=== PATIENT | male | born 1970 | race Caucasian/White ===

== ENCOUNTER 2019-04-05 18:27 | Emergency (ER) | payer BC ==
[~2019-04-05] VITALS: Ht 177.8 cm; Wt 86.2 kg
[2019-04-05] MEDS ORDERED: IV NORMAL SALINE 1000ML BAG 1,000 ML IV SCH (19:03)
--- NOTE | 2019-04-05 19:10 | PHYS DOC ---
Adult General Chief Complaint Chief Complaint: SHORTNESS OF BREATH HPI HPI Patient is a 49-year-old male who presents with complaint of chest pain or shortness of breath. Patient states the chest pain has been ongoing for the last couple of weeks and states the pain is intermittent. He describes pain as pressure and states that it's across his upper chest. He does indicate that he has had some nausea but no vomiting. He also indicates that he has had diaphoresis especially at night. Patient states that the shortness of breath that started this morning when he first gotten up and has progressively gotten worse throughout the day. He does indicate that he has bilateral lower extremity pain and states that he had recent nerve study on his legs and states that he was told that his nerves are overactive. He denies any fever. He does indicate he has had a cough cough that has been intermittently productive of green sputum. He states that nothing is improving his symptoms. Review of Systems Review of Systems Constitutional: Denies fever or chills [] Respiratory: Positive cough and shortness of breath [] Cardiovascular: No additional information not addressed in HPI [] GI: Denies abdominal pain. Positive nausea without vomiting or diarrhea [] Musculoskeletal: Complains of bilateral lower extremity pain [] Integument: Denies rash or skin lesions [] All other systems were reviewed and found to be within normal limits, except as documented in this note. Current Medications Current Medications Current Medications Medications (Trade) Dose Ordered Sig/[facility] Start Time Stop Time Status Last Admin Dose Admin Aspirin (Children'S Aspirin) 324 mg 1X ONCE 04/05/19 19:15 04/05/19 19:26 DC 04/05/19 19:39 324 MG Morphine Sulfate (Morphine Sulfate) 2 mg PRN Q15MIN PRN 04/05/19 19:15 04/06/19 19:14 04/05/19 19:38 2 MG Ondansetron HCl (Zofran) 4 mg STK-MED ONCE 04/05/19 19:40 04/05/19 19:41 DC Sodium Chloride 1,000 ml @ 100 mls/hr Q10H 04/05/19 19:03 04/06/19 05:02 04/05/19 19:38 100 MLS/HR Allergies Allergies Allergies Coded Allergies Type Severity Reaction Last Updated Verified No Known Drug Allergies 04/05/19 No Physical Exam Physical Exam Constitutional: Well developed, well nourished, no acute distress, non-toxic appearance. [] HENT: Normocephalic, atraumatic, bilateral external ears normal, oropharynx moist, no oral exudates, nose normal. [] Eyes: PERRLA, EOMI, conjunctiva normal, no discharge. [] Neck: Normal range of motion, no tenderness, supple, no stridor. [] Cardiovascular: Regular rate and rhythm[] Lungs & Thorax: There are coarse rhonchi bilaterally to auscultation [] Abdomen: Bowel sounds normal, soft, no tenderness. [] Skin: Warm, dry, no erythema, no rash. [] Extremities: No tenderness, no cyanosis, no clubbing, ROM intact. [] Neurologic: Alert and oriented X 3, no focal deficits noted. [] Current Patient Data Vital Signs Vital Signs Date Time Temp Pulse Resp B/P (MAP) Pulse Ox O2 Delivery O2 Flow Rate FiO2 04/05/19 21:07 73 16 151/85 (107) 98 Room Air 04/05/19 18:50 97.6 97.6 Lab Values Laboratory Tests Test 04/05/19 19:20 04/05/19 21:12 White Blood Count 12.5 x10^3/uL (4.0-11.0) H Red Blood Count 5.35 x10^6/uL (4.30-5.70) Hemoglobin 17.2 g/dL (13.0-17.5) Hematocrit 49.3 % (39.0-53.0) Mean Corpuscular Volume 92 fL (79-100) Mean Corpuscular Hemoglobin 32 pg (25-35) Mean Corpuscular Hemoglobin Concent 35 g/dL (31-37) Red Cell Distribution Width 13.7 % (11.5-14.5) Platelet Count 282 x10^3/uL (140-400) Neutrophils (%) (Auto) 59 % (31-73) Lymphocytes (%) (Auto) 36 % (24-48) Monocytes (%) (Auto) 3 % (0-9) Eosinophils (%) (Auto) 1 % (0-3) Basophils (%) (Auto) 1 % (0-3) Neutrophils # (Auto) 7.4 x10^3uL (1.8-7.7) Lymphocytes # (Auto) 4.5 x10^3/uL (1.0-4.8) Monocytes # (Auto) 0.4 x10^3/uL (0.0-1.1) Eosinophils # (Auto) 0.1 x10^3/uL (0.0-0.7) Basophils # (Auto) 0.1 x10^3/uL (0.0-0.2) D-Dimer (Sonja) 0.40 ug/mlFEU (0.00-0.50) Sodium Level 127 mmol/L (136-145) L Potassium Level 4.3 mmol/L (3.5-5.1) Chloride Level 89 mmol/L (98-107) L Carbon Dioxide Level 26 mmol/L (21-32) Anion Gap 12 (6-14) Blood Urea Nitrogen 5 mg/dL (8-26) L Creatinine 0.8 mg/dL (0.7-1.3) Estimated GFR (Cockcroft-Gault) 102.7 BUN/Creatinine Ratio 6 (6-20) Glucose Level 114 mg/dL (70-99) H Calcium Level 9.3 mg/dL (8.5-10.1) Magnesium Level 1.9 mg/dL (1.8-2.4) Total Bilirubin 0.3 mg/dL (0.2-1.0) Aspartate Amino Transferase (AST) 27 U/L (15-37) Alanine Aminotransferase (ALT) 26 U/L (16-63) Alkaline Phosphatase 91 U/L (46-116) Troponin I Quantitative < 0.017 ng/mL (0.000-0.055) YZ-Uci-G-Type Natriuretic Peptide 12 pg/mL (0-124) Total Protein 8.8 g/dL (6.4-8.2) H Albumin 4.5 g/dL (3.4-5.0) Albumin/Globulin Ratio 1.0 (1.0-1.7) Urine Collection Type Unknown Urine Color Yellow Urine Clarity Clear Urine pH 6.5 Urine Specific [place] <=1.005 Urine Protein Negative mg/dL (NEG-TRACE) Urine Glucose (UA) Negative mg/dL (NEG) Urine Ketones (Stick) Negative mg/dL (NEG) Urine Blood Negative (NEG) Urine Nitrite Negative (NEG) Urine Bilirubin Negative (NEG) Urine Urobilinogen Dipstick 0.2 mg/dL (0.2 mg/dL) Urine Leukocyte Esterase Negative (NEG) Urine RBC 0 /HPF (0-2) Urine WBC 0 /HPF (0-4) Urine Squamous Epithelial Cells None /LPF Urine Bacteria 0 /HPF (0-FEW) Laboratory Tests 04/05/19 19:20 Laboratory Tests 04/05/19 19:20 EKG EKG [] Interpretation Time: EKG demonstrates normal sinus rhythm with rate of 79. Radiology/Procedures Radiology/Procedures [] Impressions: PROCEDURE: PORTABLE CHEST 1V EXAM: Chest, single view. HISTORY: Chest pain. COMPARISON: None. FINDINGS: A frontal view of the chest is obtained. There is no infiltrate, pleural effusion or pneumothorax. The heart is normal in size. IMPRESSION: No acute pulmonary finding. Electronically signed by: Heather Jama MD (04/05/2019 7:41 PM) [facility] Course & Med Decision Making Course & Med Decision Making Pertinent Labs and Imaging studies reviewed. (See chart for details) [] Dragon Disclaimer Dragon Disclaimer This electronic medical record was generated, in whole or in part, using a voice recognition dictation system. Departure Departure Impression: Primary Impression: Bronchitis Additional Impression: Chest wall pain Disposition: 01 HOME, SELF-CARE Condition: STABLE Referrals: NON,STAFF (PCP) Patient Instructions: Acute Bronchitis, Chest Wall Pain Scripts Guaifenesin/Codeine Phosphate (CHERATUSSIN AC SYRUP) 118 Ml Liquid 5 ML PO PRN Q6HRS PRN for COUGH, #120 ML Prov: TEVIN ARRIETA Jr. DO 04/05/19 Amoxicillin/Potassium Clav (AUGMENTIN 875-125 TABLET) 1 Each Tablet 1 TAB PO BID, #20 TAB Prov: TEVIN ARRIETA Jr. DO 04/05/19 Problem Qualifiers TEVIN ARRIETA Jr. DO April 05, 2019 19:10
[2019-04-05] MEDS ORDERED: ASPIRIN CHEWABLE 81 MG TABLET. PO ONE (19:15)
[2019-04-05] MEDS ORDERED: MORPHINE SULFATE 2 MG/ML VIAL. IV/SQ PRN (19:15)
[2019-04-05 19:27] LABS: BASO # 0.1 x10^3/uL (0.0-0.2); BASO % 1 % (0-3); EOS # 0.1 x10^3/uL (0.0-0.7); EOS % 1 % (0-3); HEMATOCRIT 49.3 % (39.0-53.0); HEMOGLOBIN 17.2 g/dL (13.0-17.5); LYMPH # 4.5 x10^3/uL (1.0-4.8); LYMPH % 36 % (24-48); MEAN CORPUSCULAR HEMOGLOBIN 32 pg (25-35); MEAN CORPUSCULAR HGB CONC 35 g/dL (31-37); MEAN CORPUSCULAR VOLUME 92 fL (79-100); MONO # 0.4 x10^3/uL (0.0-1.1); MONO % 3 % (0-9); NEUT # 7.4 x10^3uL (1.8-7.7); NEUT % 59 % (31-73); PLATELET COUNT 282 x10^3/uL (140-400); RED BLOOD COUNT 5.35 x10^6/uL (4.30-5.70); RED CELL DISTRIBUTION WIDTH 13.7 % (11.5-14.5); WHITE BLOOD COUNT 12.5 x10^3/uL (4.0-11.0)
[2019-04-05] MEDS ORDERED: ONDANSETRON PF 4 MG/2 ML VIAL. ONE (19:40)
--- NOTE | 2019-04-05 19:44 | RAD ---
EXAM: Chest, single view. HISTORY: Chest pain. COMPARISON: None. FINDINGS: A frontal view of the chest is obtained. There is no infiltrate, pleural effusion or pneumothorax. The heart is normal in size. IMPRESSION: No acute pulmonary finding. Electronically signed by: Heather Jama MD (04/05/2019 7:41 PM) [facility]
[2019-04-05 19:49] LABS: CALCIUM 9.3 mg/dL (8.5-10.1); CREATININE 0.8 mg/dL (0.7-1.3); GFR 102.7; POTASSIUM 4.3 mmol/L (3.5-5.1)
[2019-04-05 20:04] LABS: ALBUMIN 4.5 g/dL (3.4-5.0); MAGNESIUM 1.9 mg/dL (1.8-2.4); TOTAL BILIRUBIN 0.3 mg/dL (0.2-1.0); TOTAL PROTEIN 8.8 g/dL (6.4-8.2)
[2019-04-05 21:07] VITALS: BP 151/85
[2019-04-05 21:19] LABS: BILIRUBIN,URINE NEGATIVE (NEG); CLARITY,URINE CLEAR; COLOR,URINE YELLOW; NITRITE,URINE NEGATIVE (NEG); PH,URINE 6.5; PROTEIN,URINE NEGATIVE (NEG-TRACE); UROBILINOGEN,URINE 0.2 mg/dL (0.2 mg/dL)
[2019-04-05 21:23] LABS: BACTERIA,URINE 0 /HPF (0-FEW); RBC,URINE 0 /HPF (0-2); WBC,URINE 0 /HPF (0-4)
[2019-04-05] MEDS ORDERED: AMOX1TAB61 PO (21:46)
[2019-04-05] MEDS ORDERED: GUAI118L20 PO (21:46)
--- NOTE | 2019-04-06 06:59 | EKG ---
[facility] [address] [place] [address] Test Date: 2019-04-05 Test Time: 19:06:14 Pat Name: CHELSI HAIRSTON Department: Room: Gender: M Locomotive Operator: : 1970 Requested By: TEVIN ARRIETA Order Number: [id number] Reading MD: Atilio Caban MD Measurements Intervals Scott Rate: 79 P: 30 DC: 166 QRS: 42 QRSD: 90 T: 60 QT: 348 QTc: 405 Interpretive Statements SINUS RHYTHM Electronically Signed On 05-03-2019 8:10:24 CDT by Atilio Caban MD
== END 2019-04-05 21:50 | disposition home or self-care (01) ==
LOC: ER 18:27
DX: J40 Bronchitis, not specified as acute or chronic (principal); R07.89 Other chest pain; M79.605 Pain in left leg; M79.604 Pain in right leg; Z79.82 Long term (current) use of aspirin
CPT/HCPCS: 36415; 71045; 80053; 81001; 83735; 83880; 84484; 85025; 85379; 93005; 96374; 99285; J2270; J7030